=== PATIENT | male | born 2000 | race Caucasian/White ===

== ENCOUNTER 2022-06-04 20:10 | Emergency (ER) | payer OTHER, SELFPAY ==
[2022-06-04 20:26] VITALS: BP 126/74; PULSE 68; RESP 18; TEMP 36.7; O2SAT 95; BMI 43.7
[2022-06-04] MEDS: fluorescein 1 mg Strip EYE-RIGHT (21:22)
[2022-06-04] MEDS: eye irrigation 30 mL Btl EYE-LEFT (21:22)
--- NOTE | 2022-06-04 21:25 | W.ED.EYEPROB ---
HPI - Eye Problem General: Chief complaint: Eye Problems Stated complaint: right eye possible cut? Time Seen by Provider: 06/04/22 21:04 History of Present Illness: Patient is a 21-year-old male comes to the ED with right eye complaint. Patient states that this morning he woke up and he felt like he had something in the superior aspect of his right eye. He flushed his eye out with some water. Patient does wear glasses but does not wear contacts. He states that his pain is a 2 out of 10 with his eye open but when he closes his eye it is a 6 out of 10. Denies any known foreign body in right eye. Endorses little blurry vision in right eye but no other vision changes. Denies pain with ocular movements. Denies any periorbital swelling or eyelid swelling. He has had this before and it cleared up with some eyedrops. Patient works at a [employer]. Patient is up-to-date on his tetanus. Associated symptoms: Denies fever(s), headache(s), nausea, neck pain or vomiting Review of Systems Const: Denies: fever(s), chills or fatigue Eyes: Reports: blurry vision (Right eye) and eye discomfort (Right eye); Denies: change in vision, photophobia, eye discharge or eye redness ENMT: Denies: throat pain, odynophagia, nasal discharge or nasal congestion Card: Denies: chest pain, palpitations, edema, swelling of feet/ankles, dyspnea on exertion or orthopnea Resp: Denies: dyspnea, productive cough or non-productive cough GI: Denies: abdominal pain, nausea, vomiting, diarrhea, constipation or hematochezia : Denies: flank pain, difficulty urinating, dysuria or hematuria Musc: Denies: neck pain, back pain or extremity swelling Skin/Breast: Denies: rash or new lesions Neuro: Denies: headache(s), numbness in extremities or weakness in extremities PFSH ED PFSH: Medical History No pertinent family history Surgical History No pertinent past surgical history Social History Smoking and tobacco status: current every day smoker e-cigarettes Physical Exam Const: COMMON NORMALS: no acute distress, patient oriented x3, healthy appearing and alert GENERAL APPEARANCE: cooperative and comfortable HENMT: COMMON NORMALS: normocephalic HEAD & SCALP: normocephalic MOUTH: Normal oral and palatal mucosa present THROAT: posterior oropharynx normal and uvula midline Eye: COMMON NORMALS: Equal, round and reactive pupils present, EOMs intact bilaterally and conjunctivae normal PERIORBITAL: periorbital findings normal EYELID: eyelids normal CONJUNCTIVA: Yes conjunctivae normal PUPIL: Yes Equal, round and reactive pupils present OTHER: Fluorescein dye and lamp exam performed on right eye and it showed no corneal abrasions. No foreign body seen. Neck/C-Spine: COMMON NORMALS: supple GENERAL: Yes normal visual inspection Resp: COMMON NORMALS: normal respiratory effort, No retractions, No use of accessory muscles and clear to auscultation bilaterally AUSCULTATION: clear to auscultation bilaterally Cardio: COMMON NORMALS: regular rate, regular rhythm, S1 normal heart sound present, S2 normal heart sound present, No gallops present (Cardio), No clicks present (Cardio), No murmurs present (Cardio) and Peripheral pulses 2+ throughout RATE: regular rate RHYTHM: regular rhythm HEART SOUNDS: S1 normal heart sound present and S2 normal heart sound present PERIPHERAL PULSES: Peripheral pulses 2+ throughout GI: COMMON NORMALS: Normal to inspection, nondistended, normoactive bowel sounds present, Soft to palpation, non-tender and no masses PALPATION: Yes Soft to palpation : COMMON NORMALS: Yes no CVA tenderness BLADDER/KIDNEY EXAM: Yes no CVA tenderness Back/Pelvis: COMMON NORMALS: no CVA tenderness Extremity: COMMON NORMALS: normal to inspection Neuro: COMMON NORMALS: patient oriented x3 SENSORIUM/ORIENTATION: Yes alert GAIT: Yes Normal gait present Skin: GENERAL SKIN EXAM: dry skin Course Vital Signs: Vital signs: Vital Signs Temperature 98.1 F 06/04/22 20:26 Pulse Rate 68 06/04/22 20:26 Respiratory Rate 18 06/04/22 20:26 Blood Pressure 126/74 06/04/22 20:26 Pulse Oximetry 95 06/04/22 20:26 Oxygen Delivery Me thod 06/04/22 20:26 MDM - Eye Problem Medical Decision Making Patient is a 21-year-old male comes to the ED with right eye complaint. Patient states that this morning he woke up and he felt like he had something in the superior aspect of his right eye. He flushed his eye out with some water. Patient does wear glasses but does not wear contacts. He states that his pain is a 2 out of 10 with his eye open but when he closes his eye it is a 6 out of 10. Denies any known foreign body in right eye. Endorses little blurry vision in right eye but no other vision changes. Denies pain with ocular movements. Denies any periorbital swelling or eyelid swelling. He has had this before and it cleared up with some eyedrops. Patient works at a [employer]. Patient is up-to-date on his tetanus. Vitals are stable. Patient appears in no acute distress or pain. Right eye shows no foreign body. No periorbital swelling or eyelid swelling seen. No conjunctivitis. Fluorescein dye and lamp exam performed that showed no corneal abrasions. Given clinical appearance and exam findings I am not concerned for any serious acute a concern. Patient was diagnosed with pain in right eye and given Maxitrol eyedrops here in the ED. Patient was stable for discharge home and sent home with a prescription for Maxitrol eyedrops. Return to ED precautions given. Follow-up with eye doctor in the next couple days for reevaluation. Patient understood and agreed with plan. Discharge Plan Discharge Patient Disposition: Home Clinical Impression: Pain in right eye Condition: Stable Prescriptions: New Maxitrol 3.5mg/mL-10,000 unit/mL-0.1 % drops,suspension 1 drp ophthalmic (eye) Q6H 5 Days Qty: 5 0RF No Action prednisone 20 mg tablet 40 mg PO DAILY 5 Days Qty: 10 0RF cyclobenzaprine 10 mg tablet 10 mg PO DAILY PRN (Reason: muscle spasm) 10 Days Qty: 7 0RF Discharge Orders: Discharge ED (Routine); Ordered 06/04/22 Ordered By: Quinn Asencio Referrals: Memo Almeida Jr, MD [Family Provider] - Discharge Diet: Regular Discharge Activity: Resume usual activity Patient Instructions: Eye Pain (ED) Activity Restrictions/Additional Instructions: Follow-up with eye doctor in the next 3 to 5 days for reevaluation. Take medications as prescribed. Return to the ER or your medical provider if condition worsens. Please read and understand discharge instructions. Thank you for choosing [facility] for your healthcare needs today. Please realize this is an emergency room and that we are providing you with a medical screening exam and this may not be complete and all inclusive of all the testing and or work up that you may need to determine your ailment or severity of your illness. It is very important that you follow up as instructed or that you return to the Emergency Department should you have concerns or if your condition changes or worsens in any way. Coding Level of Care Code ED Assessment Nurse for Blaise Delgado
[2022-06-04] MEDS: neomycin-poly-dex Op 5 mL Btl 2 DROP EYE-RIGHT (22:01)
== END 2022-06-04 22:01 | disposition home or self-care (01) ==
PROVIDERS: Emergency Provider Physician Assistant; Family Provider Pediatrics Adolescent Medicine
DX: H57.11 Ocular pain, right eye (principal); F17.290 Nicotine dependence, other tobacco product, uncomplicated
CPT/HCPCS: 99283